=== PATIENT | female | born 1940 | race Asian ===

== ENCOUNTER 2017-10-14 13:15 | Outpatient (CLI) | payer MEDICARE ==
--- NOTE | 2017-10-14 16:29 | Mammography Report ---
BONE DEXA:10/14/17 13:15:00 CLINICAL: Postmenopausal. No comparison. TECHNIQUE: Two site bone DEXA performed on an Hologic scanner. FINDINGS: The average BMD of the lumbar spine L1-L4 is 0.905g/cm squared with a T-score of -2.2 and a Z-score of +0.5. The average BMD of the left hip is 0.871g/cm squared with a T-score of -1.0 and a Z-score of +0.3. IMPRESSION: WHO classification: Osteopenia with increased fracture risk based on both spine and left hip measurements. RECOMMENDATION: Clinical correlation and routine screening. DEFINITIONS: BMD = Bone Mineral Density T-score = BMD related to mean peak bone mass of young adult (mean expressed in Standard Deviation) Z-score = Age matched BMD expressed in SD World Health Organization (WHO) Diagnostic Criteria Normal T-score > -1 SD Osteopenia T-score between -1 and -2.4 SD Osteoporosis T-score -2.5 SD or below NOTE: BMD is not the only risk factor for fracture. One should also consider factors such as the patient's age, risk of falling, previous osteoporotic fracture, family history of osteoporotic fractures, current smoker, and low body weight. Z-scores are not calculated if >80 years of age.
--- NOTE | 2017-10-15 09:12 | Mammography Report ---
BILATERAL DIGITAL AUGMENTED SCREENING MAMMOGRAM with CAD: 10/14/17 13:15:00 CLINICAL: Routine screening. COMPARISON:09/24/11 FINDINGS: Screening views with and without implant displacement demonstrate almost entirely fatty breasts. Extensive benign right upper outer calcifications are new compared to the previous mammogram and are likely related to injection of either silicone or other material for additional augmentation. No mass, architectural distortion or suspicious calcifications. Intact subglandular implants with heavy capsular calcification. IMPRESSION: No mammographic evidence of malignancy. BI-RADS CATEGORY: 2 -- Benign RECOMMENDATION: Routine mammographic screening in one year. ACR BI-RADS MAMMOGRAPHIC CODES: 0 = Needs additional imaging evaluation; 1 = Negative; 2 = Benign; 3 = Probably benign; 4 = Suspicious; 5 = Malignant; 6 = Known biopsy-proven malignancy COMMENT: 1. Dense breast tissue, i.e., adenosis, fibrocystic changes, etc., may obscure an underlying neoplasm. 2. Approximately 10% of cancers are not detected with mammography. 3. A negative mammography report should not delay biopsy if a clinically suspicious mass is present. COMMENT: Patient follow-up letters are generated via our [employer] application.
== END 2017-10-14 13:16 | disposition home or self-care (01) ==
LOC: SPVWC 13:15
PROVIDERS: ATTEND Family Medicine
DX: Z12.31 Encounter for screening mammogram for malignant neoplasm of breast (principal); Z13.820 Encounter for screening for osteoporosis; M85.88 Other specified disorders of bone density and structure, other site; F17.210 Nicotine dependence, cigarettes, uncomplicated; Z78.0 Asymptomatic menopausal state
CPT/HCPCS: 77066; 77067; 77080

== ENCOUNTER 2018-10-15 13:02 | Outpatient (CLI) | payer MEDICARE ==
--- NOTE | 2018-10-15 15:59 | Mammography Report ---
BILATERAL BREAST DIAGNOSTIC MAMMOGRAM WITH CAD AND IMPLANT-DISPLACED VIEWS HISTORY: Routine screening. COMPARISON: 10/14/2017 FINDINGS: Mammographic density: Predominantly fatty Digital standard and implant-displaced CC and MLO views both breasts demonstrate no mass, architectur al distortion or suspicious calcifications. Bilateral retroglandular implants are in place. Stable extensive right upper outer calcifications v ersus injected silicone or other material for additional augmentation. IMPRESSION No mammographic evidence of malignancy. If the clinical examination remains stable, recommend bilateral screening mammogram in approximately one year. BIRADS 2: Benign A negative mammogram should not delay biopsy if a clinically suspicious mass is present. Interpretation of this examination was rendered with the benefit of CAD analysis. Signer Name: Natanael Silvestre MD Signed: 10/15/2018 3:55 PM Workstation Name: [id number]
== END 2018-10-15 13:03 | disposition home or self-care (01) ==
LOC: SPVWC 13:02
PROVIDERS: ATTEND Family Medicine
DX: Z12.31 Encounter for screening mammogram for malignant neoplasm of breast (principal)
CPT/HCPCS: 77067

== ENCOUNTER 2019-10-20 13:06 | Outpatient (CLI) | payer MEDICARE ==
--- NOTE | 2019-10-21 07:55 | Mammography Report ---
DIGITAL SCREENING MAMMOGRAM WITH CAD, 10/21/2019 INDICATION: Routine screening mammography. SCREENING MAMMO TECHNIQUE: Digital bilateral 2D mammography was obtained in the craniocaudal and mediolateral obliq ue projections. This examination was interpreted with the benefit of Computer-Aided Detection analysi s. COMPARISON: 10/15/2018 FINDINGS: Breast Density: The breasts are almost entirely fatty. There is no evidence of dominant mass, suspicious calcifications or architectural distortion in eithe r breast. Implants appear unchanged. Old extravasation on the right is stable. IMPRESSION: No evidence of malignancy Follow up recommendation: Routine yearly BI-RADS Category 2: Benign. A "normal" or negative report should not discourage follow up or biopsy of a clinically significant f inding. A written summary of these findings will be mailed to the patient. The patient will be entered into a mammography reporting system which will generate a reminder letter for the patient's next appointmen t at the appropriate interval. The [employer] recommends yearly mammograms starting at age 40 and continuing as l magdy as a woman is in good health. Breast MRI is recommended for women with an approximate 20-25% or greater lifetime risk of breast cancer, including women with a strong family history of breast or ova carlton cancer or who have been treated for Hodgkin's disease. Signer Name: David Gil MD Signed: 10/21/2019 7:51 AM Workstation Name: [id number]
== END 2019-10-20 13:07 | disposition home or self-care (01) ==
LOC: SPVWC 13:06
PROVIDERS: ATTEND Family Medicine
DX: Z12.31 Encounter for screening mammogram for malignant neoplasm of breast (principal)
CPT/HCPCS: 77067